=== PATIENT | female | born 1980 | race African-American/Black ===

== ENCOUNTER 2021-01-23 07:59 | Outpatient (REF) | payer OTHER, SELFPAY | END 2021-01-23 08:00 | disposition home or self-care (01) | LOC: HO.LAB 07:59 | PROVIDERS: Visit Provider Internal Medicine | DX: Z20.822 Contact with and (suspected) exposure to COVID-19 (principal) | CPT/HCPCS: C9803; U0003; U0005 ==

== ENCOUNTER 2021-09-19 08:25 | Outpatient (REF) | payer OTHER, SELFPAY ==
[2021-09-19 09:26] LABS: COVID-19 Test Negative (Negative)
== END 2021-09-19 08:26 | disposition home or self-care (01) ==
LOC: HO.LAB 08:25
PROVIDERS: Visit Provider Internal Medicine
DX: Z20.822 Contact with and (suspected) exposure to COVID-19 (principal)
CPT/HCPCS: 87635; C9803